=== PATIENT | female | born 1985 | race American Indian/Alaskan Native ===

== ENCOUNTER 2016-04-16 08:11 | Emergency (ER) | payer SELFPAY ==
[2016-04-16 08:25] VITALS: BP 138/94
--- NOTE | 2016-04-16 09:28 | Emergency Department Report ---
ED ENT HPI - General Chief complaint: Sore Throat Stated complaint: FEVER/DIFFICULTY SWOLLOWING/HEADACHE Time Seen by Provider: 04/16/16 09:25 Source: patient Mode of arrival: Ambulatory Limitations: No Limitations - History of Present Illness Initial comments: Reports fever, sore throat x 2 days. No other sx. MD complaint: sore throat -: Gradual, days(s) (2) Location: throat Severity: moderate Severity scale (0 -10): 6 Quality: aching Consistency: constant Improves with: none Worsens with: none Associated Symptoms: fever, sore throat. denies: cough, toothache - Related Data Previous Rx's Medication Instructions Recorded Last Taken Type Acetaminophen/Codeine [Tylenol #3] 1 tab PO Q6H PRN #14 tab 09/30/13 Unknown Rx Ondansetron [Zofran Odt] 4 mg PO Q4-6H PRN #14 tab.rapdis 09/30/13 Unknown Rx Vit-Fe Fumar-FA [ 1 each PO ONCE #60 tablet 09/30/13 Unknown Rx Vitamin] HYDROcodone/APAP 5-325 [[place] 1 each PO Q8HR PRN #12 tablet 12/15/13 Unknown Rx 5/325] Penicillin Vk [Veetids TAB] 500 mg PO QID #40 tablet 12/15/13 Unknown Rx Ferrous Sulfate [Feosol 325 MG tab] 325 mg PO BID #60 tablet 04/21/14 Unknown Rx Ibuprofen [Motrin 800 MG tab] 800 mg PO Q6H PRN #30 tablet 04/21/14 Unknown Rx oxyCODONE /ACETAMINOPHEN [Percocet 1 - 2 tab PO Q4H PRN #30 tablet 04/21/14 Unknown Rx 5/325 mg] Labetalol [Normodyne TAB] 200 mg PO BID #60 tablet 04/23/14 Unknown Rx Amoxicillin [Amoxicillin TAB] 875 mg PO BID #20 tablet 04/16/16 Unknown Rx predniSONE [Deltasone] 40 mg PO QDAY #10 tab 04/16/16 Unknown Rx Allergies Allergy/AdvReac Type Severity Reaction Status Date / Time No Known Allergies Allergy Verified 04/03/14 10:17 ED Dental HPI - General Chief complaint: Sore Throat Stated complaint: FEVER/DIFFICULTY SWOLLOWING/HEADACHE Time Seen by Provider: 04/16/16 09:25 Source: patient Mode of arrival: Ambulatory Limitations: No Limitations - Related Data Previous Rx's Medication Instructions Recorded Last Taken Type Acetaminophen/Codeine [Tylenol #3] 1 tab PO Q6H PRN #14 tab 09/30/13 Unknown Rx Ondansetron [Zofran Odt] 4 mg PO Q4-6H PRN #14 tab.rapdis 09/30/13 Unknown Rx Vit-Fe Fumar-FA [ 1 each PO ONCE #60 tablet 09/30/13 Unknown Rx Vitamin] HYDROcodone/APAP 5-325 [[place] 1 each PO Q8HR PRN #12 tablet 12/15/13 Unknown Rx 5/325] Penicillin Vk [Veetids TAB] 500 mg PO QID #40 tablet 12/15/13 Unknown Rx Ferrous Sulfate [Feosol 325 MG tab] 325 mg PO BID #60 tablet 04/21/14 Unknown Rx Ibuprofen [Motrin 800 MG tab] 800 mg PO Q6H PRN #30 tablet 04/21/14 Unknown Rx oxyCODONE /ACETAMINOPHEN [Percocet 1 - 2 tab PO Q4H PRN #30 tablet 04/21/14 Unknown Rx 5/325 mg] Labetalol [Normodyne TAB] 200 mg PO BID #60 tablet 04/23/14 Unknown Rx Amoxicillin [Amoxicillin TAB] 875 mg PO BID #20 tablet 04/16/16 Unknown Rx predniSONE [Deltasone] 40 mg PO QDAY #10 tab 04/16/16 Unknown Rx Allergies Allergy/AdvReac Type Severity Reaction Status Date / Time No Known Allergies Allergy Verified 04/03/14 10:17 ED Review of Systems ROS: Stated complaint: FEVER/DIFFICULTY SWOLLOWING/HEADACHE Other details as noted in HPI Comment: All other systems reviewed and negative Constitutional: denies: chills, fever Eyes: denies: eye pain, eye discharge, vision change ENT: throat pain. denies: ear pain Respiratory: denies: cough, shortness of breath, wheezing Cardiovascular: denies: chest pain, palpitations Endocrine: no symptoms reported Gastrointestinal: denies: abdominal pain, nausea, diarrhea Genitourinary: denies: urgency, dysuria, discharge Musculoskeletal: denies: back pain, joint swelling, arthralgia Skin: denies: rash, lesions Neurological: denies: headache, weakness, paresthesias Psychiatric: denies: anxiety, depression Hematological/Lymphatic: denies: easy bleeding, easy bruising ED Past Medical Hx - Past Medical History Hx Hypertension: Yes Hx Heart Attack/AMI: No Hx Congestive Heart Failure: No Hx Diabetes: No Hx Deep Vein Thrombosis: No Hx Liver Disease: No Hx Renal Disease: No Hx Sickle Cell Disease: No Hx Seizures: No Hx Asthma: No Hx COPD: No Hx Tuberculosis: No Hx HIV: No - Surgical History Additional Surgical History: c section, tubal ligation - Social History Smoking Status: Never Smoker - Medications Home Medications: Home Medications Medication Instructions Recorded Confirmed Last Taken Type Acetaminophen/Codeine [Tylenol #3] 1 tab PO Q6H PRN #14 tab 09/30/13 04/10/14 Unknown Rx Ondansetron [Zofran Odt] 4 mg PO Q4-6H PRN #14 tab.rapdis 09/30/13 04/10/14 Unknown Rx Vit-Fe Fumar-FA [ 1 each PO ONCE #60 tablet 09/30/13 04/10/14 Unknown Rx Vitamin] HYDROcodone/APAP 5-325 [[place] 1 each PO Q8HR PRN #12 tablet 12/15/13 04/10/14 Unknown Rx 5/325] Penicillin Vk [Veetids TAB] 500 mg PO QID #40 tablet 12/15/13 04/10/14 Unknown Rx Ferrous Sulfate [Feosol 325 MG tab] 325 mg PO BID #60 tablet 04/21/14 Unknown Rx Ibuprofen [Motrin 800 MG tab] 800 mg PO Q6H PRN #30 tablet 04/21/14 Unknown Rx oxyCODONE /ACETAMINOPHEN [Percocet 1 - 2 tab PO Q4H PRN #30 tablet 04/21/14 Unknown Rx 5/325 mg] Labetalol [Normodyne TAB] 200 mg PO BID #60 tablet 04/23/14 Unknown Rx Amoxicillin [Amoxicillin TAB] 875 mg PO BID #20 tablet 04/16/16 Unknown Rx predniSONE [Deltasone] 40 mg PO QDAY #10 tab 04/16/16 Unknown Rx ED Physical Exam - General Limitations: No Limitations General appearance: alert, in no apparent distress - Head Head exam: Present: atraumatic, normocephalic - Eye Eye exam: Present: normal appearance - ENT ENT exam: Present: mucous membranes moist, other (3+ exudative tonsillitis w/o evidence of peritonsillar abscess. ) - Neck Neck exam: Present: normal inspection - Respiratory Respiratory exam: Present: normal lung sounds bilaterally. Absent: respiratory distress - Cardiovascular Cardiovascular Exam: Present: regular rate, normal rhythm. Absent: systolic murmur, diastolic murmur, rubs, gallop - GI/Abdominal GI/Abdominal exam: Present: soft, normal bowel sounds - Extremities Exam Extremities exam: Present: normal inspection - Back Exam Back exam: Present: normal inspection - Neurological Exam Neurological exam: Present: alert, oriented X3 - Psychiatric Psychiatric exam: Present: normal affect, normal mood - Skin Skin exam: Present: warm, dry, intact, normal color. Absent: rash ED Course Vital Signs 04/16/16 08:23 Temperature 99.2 F Pulse Rate 100 H Respiratory 18 Rate Blood Pressure 138/94 O2 Sat by Pulse 100 Oximetry - Reevaluation(s) Reevaluation #1: 04/16/16 09:26 NAD, stable for d/c. ED Medical Decision Making - Medical Decision Making Pt with exudative tonsillitis. Will treat and have her follow with PCP. - Differential Diagnosis strep, mono/viral Critical care attestation.: If time is entered above; I have spent that time in minutes in the direct care of this critically ill patient, excluding procedure time. ED Disposition Clinical Impression: Acute tonsillitis Qualifiers: Pharyngitis/tonsillitis etiology: unspecified etiology Qualified Code(s): J03.90 - Acute tonsillitis, unspecified Disposition: DISCHARGED TO HOME OR SELFCARE Is pt being admited?: No Condition: Good Instructions: Strep Throat (ED), Tonsillitis (ED) Prescriptions: Amoxicillin [Amoxicillin TAB] 875 mg PO BID #20 tablet predniSONE [Deltasone] 40 mg PO QDAY #10 tab Referrals: PRIMARY CARE,MD [Primary Care Provider] - 3-5 Days Time of Disposition: :27
== END 2016-04-16 09:40 | disposition home or self-care (01) ==
LOC: ED 08:11
DX: J03.90 Acute tonsillitis, unspecified (principal); I10 Essential (primary) hypertension
CPT/HCPCS: 99282

== ENCOUNTER 2016-08-19 19:31 | Emergency (ER) | payer BC ==
[2016-08-19 20:01] VITALS: BP 147/93
--- NOTE | 2016-08-19 22:29 | Emergency Department Report ---
Entered by DONNELL LEE, acting as scribe for TAMIKO REYES NP. ED ENT HPI - General Chief complaint: Sore Throat Stated complaint: THROAT PAIN/FEVER Time Seen by Provider: 08/19/16 20:34 Source: patient Mode of arrival: Ambulatory Limitations: No Limitations - History of Present Illness Initial comments: This is a 31 y/o female that is non-toxic, non-ill appearing, and in no acute distress with a PMHx of HTN presents to the ED with c/o sore throat that began 1 week ago, worsening today. Rates pain a 6/10 in severity, which she describes as aching in quality. Aggravated with swallowing and alleviated with nothing. Patient reports fever and chills, but she denies pus, drainage, nausea, vomiting , chest pain, SOB, drooling, headache, and stiff neck. Patient states her temperature JIG GRINDER was 101, which she took an Ibuprofen for relief. Patient notes that she had a tooth extracted 1 week ago also and prescribed antibiotic, Amoxicillin. Patient states she recently finished her course of antibiotics. NKDA. CHANG complaint: sore throat Onset/Timin -: week(s) Location: throat Severity: moderate Severity scale (0 -10): 6 Quality: aching Consistency: constant Improves with: none Worsens with: swallowing Associated Symptoms: fever, pain with swallowing. denies: cough, gum swelling, toothache, sore throat, tinnitus, hearing loss, discharge from ear, rhinorrhea - Related Data Previous Rx's Medication Instructions Recorded Last Taken Type Acetaminophen/Codeine [Tylenol #3] 1 tab PO Q6H PRN #14 tab 09/30/13 Unknown Rx Ondansetron [Zofran Odt] 4 mg PO Q4-6H PRN #14 tab.rapdis 09/30/13 Unknown Rx Vit-Fe Fumar-FA [ 1 each PO ONCE #60 tablet 09/30/13 Unknown Rx Vitamin] HYDROcodone/APAP 5-325 [[place] 1 each PO Q8HR PRN #12 tablet 12/15/13 Unknown Rx 5/325] Penicillin Vk [Veetids TAB] 500 mg PO QID #40 tablet 12/15/13 Unknown Rx Ferrous Sulfate [Feosol 325 MG tab] 325 mg PO BID #60 tablet 04/21/14 Unknown Rx Ibuprofen [Motrin 800 MG tab] 800 mg PO Q6H PRN #30 tablet 04/21/14 Unknown Rx oxyCODONE /ACETAMINOPHEN [Percocet 1 - 2 tab PO Q4H PRN #30 tablet 04/21/14 Unknown Rx 5/325 mg] Labetalol [Normodyne TAB] 200 mg PO BID #60 tablet 04/23/14 Unknown Rx Amoxicillin [Amoxicillin TAB] 875 mg PO BID #20 tablet 04/16/16 Unknown Rx predniSONE [Deltasone] 40 mg PO QDAY #10 tab 04/16/16 Unknown Rx Amoxicillin/K Clav Tab [Augmentin 1 tab PO Q12HR 10 Days 08/19/16 Unknown Rx 875 mg] Ibuprofen [Motrin 600 MG tab] 600 mg PO Q8H PRN #15 tablet 08/19/16 Unknown Rx Allergies Allergy/AdvReac Type Severity Reaction Status Date / Time No Known Allergies Allergy Verified 04/03/14 10:17 ED Dental HPI - General Chief complaint: Sore Throat Stated complaint: THROAT PAIN/FEVER Time Seen by Provider: 08/19/16 20:34 Source: patient Mode of arrival: Ambulatory Limitations: No Limitations - History of Present Illness MD complaint: sore throat Onset/Timin -: week(s) Severity: moderate (08/01) Quality: aching Consistency: constant Improves with: none Worsens with: swallowing Dental Associated Symptons: Yes: Sore Throat. No: Headache, Earache, Gum Swelling, Fever - Related Data Previous Rx's Medication Instructions Recorded Last Taken Type Acetaminophen/Codeine [Tylenol #3] 1 tab PO Q6H PRN #14 tab 09/30/13 Unknown Rx Ondansetron [Zofran Odt] 4 mg PO Q4-6H PRN #14 tab.rapdis 09/30/13 Unknown Rx Vit-Fe Fumar-FA [ 1 each PO ONCE #60 tablet 09/30/13 Unknown Rx Vitamin] HYDROcodone/APAP 5-325 [[place] 1 each PO Q8HR PRN #12 tablet 12/15/13 Unknown Rx 5/325] Penicillin Vk [Veetids TAB] 500 mg PO QID #40 tablet 12/15/13 Unknown Rx Ferrous Sulfate [Feosol 325 MG tab] 325 mg PO BID #60 tablet 04/21/14 Unknown Rx Ibuprofen [Motrin 800 MG tab] 800 mg PO Q6H PRN #30 tablet 04/21/14 Unknown Rx oxyCODONE /ACETAMINOPHEN [Percocet 1 - 2 tab PO Q4H PRN #30 tablet 04/21/14 Unknown Rx 5/325 mg] Labetalol [Normodyne TAB] 200 mg PO BID #60 tablet 04/23/14 Unknown Rx Amoxicillin [Amoxicillin TAB] 875 mg PO BID #20 tablet 04/16/16 Unknown Rx predniSONE [Deltasone] 40 mg PO QDAY #10 tab 04/16/16 Unknown Rx Amoxicillin/K Clav Tab [Augmentin 1 tab PO Q12HR 10 Days 08/19/16 Unknown Rx 875 mg] Ibuprofen [Motrin 600 MG tab] 600 mg PO Q8H PRN #15 tablet 08/19/16 Unknown Rx Allergies Allergy/AdvReac Type Severity Reaction Status Date / Time No Known Allergies Allergy Verified 04/03/14 10:17 ED Review of Systems Comment: All other systems reviewed and negative Constitutional: chills, fever. denies: diaphoresis, weakness Eyes: denies: eye pain, eye discharge, vision change ENT: throat pain. denies: ear pain, dental pain, congestion Respiratory: denies: cough, orthopnea, shortness of breath, SOB with exertion, SOB at rest, stridor, wheezing Cardiovascular: denies: chest pain, palpitations, dyspnea on exertion, orthopnea , edema, syncope Endocrine: no symptoms reported Gastrointestinal: denies: nausea, vomiting Genitourinary: denies: urgency, dysuria, discharge Musculoskeletal: denies: back pain, joint swelling, arthralgia, myalgia Skin: denies: rash, lesions Neurological: denies: headache, weakness, numbness, paresthesias Psychiatric: denies: anxiety, depression Hematological/Lymphatic: denies: easy bleeding, easy bruising ED Past Medical Hx - Past Medical History Previous Medical History?: Yes Hx Hypertension: Yes Hx Heart Attack/AMI: No Hx Congestive Heart Failure: No Hx Diabetes: No Hx Deep Vein Thrombosis: No Hx Liver Disease: No Hx Renal Disease: No Hx Sickle Cell Disease: No Hx Seizures: No Hx Asthma: No Hx COPD: No Hx Tuberculosis: No Hx HIV: No - Surgical History Past Surgical History?: Yes Additional Surgical History: c section, tubal ligation - Social History Smoking Status: Current Every Day Smoker Substance Use Type: Alcohol - Medications Home Medications: Home Medications Medication Instructions Recorded Confirmed Last Taken Type Acetaminophen/Codeine [Tylenol #3] 1 tab PO Q6H PRN #14 tab 09/30/13 04/10/14 Unknown Rx Ondansetron [Zofran Odt] 4 mg PO Q4-6H PRN #14 tab.rapdis 09/30/13 04/10/14 Unknown Rx Vit-Fe Fumar-FA [ 1 each PO ONCE #60 tablet 09/30/13 04/10/14 Unknown Rx Vitamin] HYDROcodone/APAP 5-325 [[place] 1 each PO Q8HR PRN #12 tablet 12/15/13 04/10/14 Unknown Rx 5/325] Penicillin Vk [Veetids TAB] 500 mg PO QID #40 tablet 12/15/13 04/10/14 Unknown Rx Ferrous Sulfate [Feosol 325 MG tab] 325 mg PO BID #60 tablet 04/21/14 Unknown Rx Ibuprofen [Motrin 800 MG tab] 800 mg PO Q6H PRN #30 tablet 04/21/14 Unknown Rx oxyCODONE /ACETAMINOPHEN [Percocet 1 - 2 tab PO Q4H PRN #30 tablet 04/21/14 Unknown Rx 5/325 mg] Labetalol [Normodyne TAB] 200 mg PO BID #60 tablet 04/23/14 Unknown Rx Amoxicillin [Amoxicillin TAB] 875 mg PO BID #20 tablet 04/16/16 Unknown Rx predniSONE [Deltasone] 40 mg PO QDAY #10 tab 04/16/16 Unknown Rx Amoxicillin/K Clav Tab [Augmentin 1 tab PO Q12HR 10 Days 08/19/16 Unknown Rx 875 mg] Ibuprofen [Motrin 600 MG tab] 600 mg PO Q8H PRN #15 tablet 08/19/16 Unknown Rx ED Physical Exam - General Limitations: No Limitations General appearance: alert, in no apparent distress - Head Head exam: Present: atraumatic, normocephalic - Eye Eye exam: Present: normal appearance, PERRL, EOMI. Absent: scleral icterus, conjunctival injection, nystagmus, periorbital swelling, periorbital tenderness Pupils: Present: normal accommodation - ENT ENT exam: Present: mucous membranes moist, TM's normal bilaterally, normal external ear exam, other (2+ tonsillitis with exudates and erythematous oral pharynx). Absent: normal orophraynx - Expanded ENT Exam Expanded Ear exam: Present: normal external inspection Mouth exam: Present: normal external inspection (uvula is midline), tongue normal. Absent: drooling, trismus, muffled voice, tongue elevation, laceration Teeth exam: Present: normal inspection Throat exam: Positive: tonsillar erythema, tonsillomegaly (2+), tonsillar exudate, other (Uvula midline). Negative: R peritonsillar mass, L peritonsillar mass - Neck Neck exam: Present: normal inspection, full ROM. Absent: tenderness, meningismus, lymphadenopathy, thyromegaly - Respiratory Respiratory exam: Present: normal lung sounds bilaterally. Absent: respiratory distress, wheezes, rales, rhonchi, stridor, accessory muscle use, decreased breath sounds - Cardiovascular Cardiovascular Exam: Present: regular rate, normal rhythm, normal heart sounds. Absent: bradycardia, tachycardia, irregular rhythm, systolic murmur, diastolic murmur, rubs, gallop - GI/Abdominal GI/Abdominal exam: Present: soft, normal bowel sounds. Absent: distended, tenderness, guarding, rebound, rigid, diminished bowel sounds - Rectal Rectal exam: Present: deferred - Extremities Exam Extremities exam: Present: normal inspection, full ROM, normal capillary refill. Absent: tenderness, pedal edema, joint swelling, calf tenderness - Back Exam Back exam: Present: normal inspection, full ROM. Absent: tenderness, CVA tenderness (R), CVA tenderness (L), muscle spasm, paraspinal tenderness, vertebral tenderness, rash noted - Neurological Exam Neurological exam: Present: alert, oriented X3, CN II-XII intact, normal gait, reflexes normal. Absent: motor sensory deficit - Psychiatric Psychiatric exam: Present: normal affect, normal mood - Skin Skin exam: Present: warm, dry, intact. Absent: rash ED Course Vital Signs 08/19/16 19:55 Temperature 99.3 F Pulse Rate 58 L Respiratory 18 Rate Blood Pressure 147/93 O2 Sat by Pulse 100 Oximetry - Reevaluation(s) Reevaluation #1: 08/19/16 21:12 Patient is talking to and drinking with no signs of distress noted. ED Medical Decision Making - Medical Decision Making Ed course: This is a 31-year-old female that presents with educative tonsillitis 1- pt received augmentin at d/c due to recent antibiotics use and chronic tonsillitis. 2- pt was referred to ENT and was instructed to f/u in 3-5 days or if symptoms of swelling, pus, drainage, difficulty swallowing, sores or breath, chest pain, fever, chills, stiff neck, headache and reported back to emergency room as soon as possible. 3- at time time of discharge, the patient does not seem toxic or ill in appearance. No acute signs of distress noted. Patient agrees to discharge treatment plan of care. No further questions noted by the patient. ED Disposition Clinical Impression: Tonsillitis with exudate Disposition: TO HOME OR SELFCARE Is pt being admited?: No Does the pt Need Aspirin: No Condition: Stable Instructions: Tonsillitis (ED), Ibuprofen (By mouth), Amoxicillin/Clavulanate Potassium (By mouth) Additional Instructions: follow-up with your PCP/ENT in 3-5 days or if symptoms of swelling, pus, drainage, difficulty swallowing, sores or breath, chest pain, fever, chills, stiff neck, headache and reported back to emergency room as soon as possible. Take full course of antibiotics as prescribed. Prescriptions: Amoxicillin/K Clav Tab [Augmentin 875 mg] 1 tab PO Q12HR 10 Days Ibuprofen [Motrin 600 MG tab] 600 mg PO Q8H PRN #15 tablet PRN Reason: Pain Referrals: PRIMARY CARE, [Primary Care Provider] - 3-5 Days SONNY AGUSTIN JR, MD [Staff Physician] - 3-5 Days ENT [facility] [place] [Provider Group] - 3-5 Days [facility] [Outside] - 3-[address] [facility] [place] [Outside] - 3-5 Days Forms: Work/School Release Form(ED) This documentation as recorded by the ROSA segal JASMINE,accurately reflects the service I personally performed and the decisions made by ,TAMIKO REYES, MIRTHA.
== END 2016-08-19 21:36 | disposition home or self-care (01) ==
LOC: ED 19:31
DX: J03.90 Acute tonsillitis, unspecified (principal); I10 Essential (primary) hypertension; F17.200 Nicotine dependence, unspecified, uncomplicated
CPT/HCPCS: 87116; 87430; 99282